=== PATIENT | female | born 1940 ===

== ENCOUNTER 2018-04-08 08:01 | Day surgery (SDC) | payer OTHER ==
[~2018-04-08 08:01] MED LIST: ASA81 MG PO; LOSARTAN POTASS50 MG PO; SIMVASTATIN20 MG PO; SYNTHROID75 MCG PO
[2018-04-08] MEDS ORDERED: MACROBID 100 M100 MG PO (08:42)
[2018-04-08] MEDS ORDERED: ULTRACET PO (08:43)
== END 2018-04-08 11:10 | disposition home or self-care (01) ==
LOC: CIR.AMB 08:01
DX: N81.11 Cystocele, midline (principal); N81.6 Rectocele

== ENCOUNTER 2018-05-15 12:58 | Emergency (ER) | payer OTHER ==
[~2018-05-15] VITALS: Ht 167.6 cm; Wt 67.1 kg
[~2018-05-15 12:58] MED LIST changes: +MACROBID 100 M100 MG PO; +ULTRACET PO
[2018-05-15] MEDS ORDERED: NEURONTIN300 MG (13:13)
[2018-05-15] MEDS ORDERED: DIAZEPAM10 MG PO (15:38)
== END 2018-05-15 16:18 | disposition home or self-care (01) ==
LOC: ER 12:58
DX: M51.36 Other intervertebral disc degeneration, lumbar region (principal); M54.89 Other dorsalgia

== ENCOUNTER 2019-03-11 05:25 | Day surgery (SDC) | payer OTHER ==
[~2019-03-11 05:25] MED LIST changes: +DIAZEPAM10 MG PO; +NEURONTIN300 MG
[2019-03-11] MEDS ORDERED: MACROBID 100 M100 MG PO (10:18)
[2019-03-11] MEDS ORDERED: ULTRACET PO (10:19)
== END 2019-03-11 14:56 | disposition home or self-care (01) ==
LOC: CIR.AMB 05:25
DX: N81.11 Cystocele, midline (principal)

== ENCOUNTER 2020-11-07 08:04 | Outpatient (CLI) | payer OTHER | END 2020-11-07 08:31 | disposition home or self-care (01) | LOC: SONOGRAMA 08:04 | PROVIDERS: ATTEND Pathology Anatomic Pathology & Clinical Pathology | DX: E04.2 Nontoxic multinodular goiter (principal) ==